=== PATIENT | female | born 1985 | race Two or more races ===

== ENCOUNTER 2024-11-04 15:32 | Outpatient (RCR) | payer MEDICAID, SELFPAY ==
--- NOTE | 2024-11-05 07:03 | CTCFLWUP_ITS ---
Patient: MARK ANTHONY WU : 1985 Page 3 of 5 FOLLOW UP NOTE DATE OF SERVICE: 11/04/2024 NAME: MARK ANTHONY WU ACCOUNT: [id number] : 1985 AGE: 39 INTERVAL HISTORY: Mark Anthony, a 39yo female with painful rib lump since 2019, presented for BRCA1- related cancer risk management. Her history includes bilateral breast cancer status post bilateral mastectomies with unsatisfactory reconstruction. She has not undergone recommended prophylactic oophorectomy despite BRCA1 status. Plan includes urgent referral for bilateral salpingo-oophorectomy, CT scan with contrast of chest/abdomen/pelvis, tumor markers, vitamin D and calcium supplementation, with follow-up in 2 months. Chief Complaint Lump in rib area since 2019 that has been growing and causing pain ONCOLOGY HISTORY:?[facility] Oncology Hx? DIAGNOSIS: ?CloneDiagnosis? Iron deficiency anemia secondary to blood loss (chronic) [ICD10] D50.0; Malignant neoplasm of upper-outer quadrant of right female breast [ICD10] C50.411 DATE OF DIAGNOSIS: 07/31/2008 STAGE/TNM: IA T1b N0 M0 TREATMENT HISTORY: Care?Plan Start?Date Cycle Day Intent Herceptin?6mg/kg;?Perjeta?420mg 07/20/2015 1 Curative?(adjuvant) HISTORY OF PRESENT ILLNESS: History of Present Illness Mark Anthony Wu is a 39-year-old female with a history of bilateral breast cancer, status post bilateral mastectomies, presenting for follow-up regarding BRCA1-related cancer risk management. The patient reports a lump in her rib area that has been present since 2019, which is growing and causing pain. She describes the lump as being located right in here in her rib area. The patient expresses concern about potential cancer growth in this area affecting her diaphragm. Ms. Wu underwent bilateral mastectomies for breast cancer treatment, reporting a positive recovery. She has not yet undergone oophorectomy despite previous recommendations due to her BRCA1 status. The patient mentions that when initially counseled about oophorectomy, she was still in her thirties and the decision was deferred. She has five children, with the youngest being nearly five years old. The patient reports dissatisfaction with her breast reconstruction, stating, I did it, but I don't like the way it was done. This suggests ongoing concerns with body image and potential impact on quality of life following her cancer treatment. Medical History - Bilateral breast cancer, status post bilateral mastectomies - Lump in rib area present since 2019, causing pain - BRCA1 gene mutation carrier - , youngest child is 4 years old Surgical History - Bilateral mastectomies for breast cancer Medications and Supplements - Vitamin D Family History - Friend: Ovarian cancer, had only one child Social History - Children: Has 5 children, youngest is almost 5 years old - Marital/Relationship Status: Has had multiple pregnancies Review of Systems Musculoskeletal: Positive for lump in rib area with associated pain. Endocrine: Positive for hot flashes. Laboratory, Imaging, and Diagnostic Test Results - X-rays and ultrasounds ([id number]): Performed for a lump in the rib area, results not specified OTHER MEDICAL HISTORY/CONDITIONS: FAMILY HISTORY: ?Clone Family Hx? SOCIAL HISTORY: [employer]OR HISTORY: MEDICATIONS: 1. ibuprofen - 800 mg 1 tab As needed?[place]ra Meds? Medications Last Reconciled by Angle Chavez MA on 11/04/2024 ALLERGIES: No Known Drug Allergies REVIEW OF SYSTEMS: A complete 14-point review of systems was performed and is negative except as noted in interval history. PHYSICAL EXAMINATION:?[facility]oneBlock PE? VITAL SIGNS: Temperature?99, B/P?141/95, Oxygen?Saturation?96% Weight?150?lbs PAIN: 0 - No pain ECOG Performance Status: 0 - Asymptomatic and fully active ?[facility]oneBlock PE? GENERAL APPEARANCE: Appears well, in no apparent distress, appropriately interactive. HEENT: Normocephalic, no temporal wasting, normal conjunctiva, no scleral icterus, normal hearing, lips without lesions, neck normal range of motion. CARDIOVASCULAR: Not assessed. PULMONARY: Normal respiratory effort, no respiratory distress or use of accessory muscles, speaking in full sentences, no tachypnea. EXTREMITIES: No pedal edema or cyanosis. SKIN: Normal skin appearance. NEUROLOGIC: Alert and oriented x4. PSHYCHIATRIC: Appropriate affect, mood normal, behavior normal, intact thought and speech. LABORATORY DATA: I have personally reviewed and interpreted each of the patient?s relevant lab tests, abnormal findings are below: Date 10/03/22 ??WHITE?BLOOD?COUNT?(Thou/mm3) 4.1 ??RED?BLOOD?COUNT?(Miln/mm3) 3.99?L ??HEMOGLOBIN?(gm/dl) 10.2?L ??HEMATOCRIT?(%) 32.3?L ??PLATELET?COUNT?(Thou/mm3) 240 ??NEUTROPHILS?%,?AUTO?(%) 62 ??LYMPH?%,?AUTO?(%) 28 ??NEUTROPHILS,?AUTO?(Thou/mm3) 2.5 ??GLUCOSE,RANDOM?(mg/dL) 84 ??BLOOD?UREA?NITROGEN?(mg/dL) 12 ??CREATININE?(mg/dL) 0.60 ??SODIUM?(mmol/L) 141 ??POTASSIUM?(mmol/L) 4.0 ??CHLORIDE?(mmol/L) 106 ??CrCl?(CandG)?(ml/min) 141.16 ??AST/SGOT?(Unit/L) 17 ??ALT/SGPT?(Unit/L) 11 ??ALKALINE?PHOSPHATASE?(Unit/L) 70 ??BILIRUBIN,?TOTAL?(mg/dL) 0.3 ??PROTEIN?TOTAL?(gm/dl) 7.0 ??ALBUMIN,?SERUM?(gm/dl) 4.0 ??GLOBULIN?(gm/dl) 3.0 ??ALBUMIN/GLOBULIN?RATIO 1.3 ??CALCIUM,?SERUM?(mg/dL) 9.4 ??CALCIUM?SERUM?(CORRECTED)?(mg/dL) 9.4 ??CEA?(O*)?(ng/ml) <?0.5 ??CA?125?(O*)?(Unit/mL) 11.0 ASSESSMENT/PLAN:?Manuela Lomax Assessment/Plan? Mark Anthony Wu, a 39-year-old female with a history of bilateral breast cancer and BRCA1 mutation, presents for discussion of prophylactic oophorectomy and evaluation of a painful rib lump present since 2019. BRCA1 mutation with history of bilateral breast cancer Assessment: Patient has a known BRCA1 mutation and history of bilateral breast cancer, status post bilateral mastectomies. She is at high risk for ovarian cancer due to her genetic predisposition. Despite previous recommendations, she has not yet undergone prophylactic oophorectomy. Given her age of 39 and completed childbearing (5 children), immediate prophylactic oophorectomy is strongly indicated to reduce her risk of ovarian cancer, which is described as potentially fatal and difficult to detect early. Plan: - Urgent referral to Dr. Pelaez for prophylactic bilateral salpingo-oophorectomy - Order CT scan with contrast of abdomen and pelvis - Order tumor markers (blood work) - Recommend vitamin D and calcium supplementation post-surgery - Discuss potential use of estrogen cream for vaginal symptoms post-surgery if needed - Follow-up in [address] or sooner if [address] scan completed earlier Painful rib lump Assessment: Patient reports a painful lump in the rib area present since 2019, which has been growing. Previous workup by Dr. Yo included x-rays and ultrasounds, but no biopsy was performed. There is concern about potential malignancy affecting the diaphragm, given the location and persistence of s ymptoms. Plan: - Order CT scan with contrast of chest, abdomen, and pelvis to evaluate rib lump and screen for metastatic disease - Review results of CT scan to determine need for further workup or biopsy Post-bilateral mastectomy status Assessment: Patient underwent bilateral mastectomies for breast cancer treatment. She expresses dissatisfaction with the reconstruction results. Plan: - Discuss potential for revision of breast reconstruction after addressing more urgent health concerns - Consider referral to plastic surgery for evaluation of reconstruction options, including fat grafting, once ovarian cancer risk is addressed ORDERS: Order # Description [id number] + CA 125 + Comprehensive Metabolic Panel - 12 + CBC with Auto Diff [id number] CT Scan + Chest + Abdomen and Pelvis + With W/O Contrast [id number] MD Follow Up 2 Months [id number] RETURN TO CLINIC: 4 weeks BILLING AND COMPLIANCE: I reviewed external records from providers outside my specialty as summarized above. I spent a total of 50 minutes on this patient?s care on the day of their visit excluding time spent related to any billed procedures. This time includes time spent with the patient as well as time spent documenting in the medical record, reviewing patients records and tests, obtaining history, placing orders, communicating with other healthcare professionals, counseling the patient, family or caregiver, and/or care coordination for the diagnoses above. Electronically Signed by: Lukas Lomax MD T: 7:00 AM CC: PCP: Lani Kirkland Referring: Lani Kirkland This document was completed utilizing speech recognition software. Grammatical errors, random word insertions, pronoun errors, and incomplete sentences are an occasional consequence of this system due to software limitations, ambient noise, and hardware issues. Any formal questions or concerns about the content, text or information contained within the body of this dictation should be directly addressed to the provider for clarification.
== END 2024-11-05 23:59 | disposition home or self-care (01) ==
LOC: SCTC 15:32
PROVIDERS: PCP Physician Assistant Medical; Referring Provider Physician Assistant Medical; Visit Provider Internal Medicine Hematology & Oncology
DX: Z08 Encounter for follow-up examination after completed treatment for malignant neoplasm (principal); Z85.3 Personal history of malignant neoplasm of breast; Z90.13 Acquired absence of bilateral breasts and nipples; R07.81 Pleurodynia; M89.8X8 Other specified disorders of bone, other site; Z15.02 Genetic susceptibility to malignant neoplasm of ovary
CPT/HCPCS: 99212; G0463

== ENCOUNTER 2024-12-16 14:30 | Emergency (ER) | payer MEDICAID, SELFPAY ==
[2024-12-16 14:33] VITALS: PULSE 76; RESP 18; O2SAT 98
[2024-12-16 14:45] VITALS: BMI 30.2
[2024-12-16 14:52] VITALS: BP 166/93; PULSE 82; RESP 18; O2SAT 99
[2024-12-16 15:45] VITALS: BP 153/77; PULSE 68; RESP 19; TEMP 36.7; O2SAT 98
[2024-12-16] MEDS: SODIUM CHLORIDE 0.9% 1000 ML 1,000 ML 999 ML IV (15:50)
[2024-12-16] MEDS: MethylPREDNISolone SOD SUCC 62.5 MG/ML 2ML VIAL 125 MG IVP (15:51)
[2024-12-16] MEDS: FAMOTIDINE INJ 10 MG/ML VIAL 2 ML 20 MG IVP (15:51)
--- NOTE | 2024-12-16 17:14 | EDNOTE_ITS ---
ED Allergic Reaction RME/HPI General Chief complaint: Allergic Reaction Stated complaint: MINOR ALLERGIC REACTION Time Seen by Provider: 12/16/24 14:44 Arrival date/time: 12/16/24 14:30 Limitations: no limitations RME / HPI RME / HPI narrative: 39-year-old female brought in by EMS due to allergic reaction during procedure. Was having a steady with IV iodine. Has had it in the past but shortly after started having rash and throat tightening. At this time not short of breath. Was given Benadryl 50 mg IM by EMS en route. Which she thinks has already started to kick in. 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 Often gets itching in the throat. But has never had tongue swelling or lip swelling. Does not have EpiPen at home. No vomiting no diarrhea. Related Data Home Medications ?Medication ?Instructions ?Recorded ?Confirmed tramadol 50 mg tablet (Ultram) 50 mg PO Q4HR PRN PAIN #0 tabs 08/20/14 cyclobenzaprine 10 mg tablet 10 mg PO Q8HR PRN Spasms 07/05/18 hydrocodone 5 mg-acetaminophen 325 1 tab PO Q6H PRN Pa in 07/05/18 mg tablet ([place]) tamoxifen 20 mg tablet 20 mg PO BID 07/05/18 Previous Rx's ?Medication ?Instructions ?Recorded ibuprofen 600 mg tablet 600 mg PO Q6HR PRN PAIN #60 tabs 08/18/15 ibuprofen 600 mg tablet 1 tab PO Q8HR PRN INFLAMMATI ON #30 04/04/17 tabs diphenhydramine HCl 25 mg capsule 50 mg (2 x 25 mg) PO Q6H PRN 12/16/24 (Benadryl) allergy symptoms #10 caps epinephrine 0.3 mg/0.3 mL 0.3 ml subcut .x1 PRN injection, auto-injector hypersensitivity reaction #2 ea famotidine 40 mg tablet (Pepcid) 40 mg PO QDAY #30 tab s 12/16/24 prednisone 20 mg tablet 40 mg PO QDAY 5 days #10 tab s 12/16/24 Allergies Allergy/AdvReac Type Severity Reaction Status Date / Time Iodinated Contrast Media Allergy Difficulty Verified 12/16/24 14:39 Breathing Review of Systems Review of Systems Systems Reviewed: All systems reviewed, normal except as documented Constitutional Constitutional: Denies fever(s) Cardiovascular Cardiovascular: Denies dyspnea Respiratory Respiratory: Denies dyspnea Integumentary/Breasts Skin/Breast: Reports rash ED Exam General Limitations: Present no limitations General appearance: Present alert and in no apparent distress Eye Eye exam: Present normal appearance, PERRL and EOMI ENT ENT exam: Present normal exam, normal oropharynx and mucous membranes moist Neck Neck exam: Present normal inspection, full ROM and trachea midline Chest Chest inspection: Present normal inspection and symmetric chest wall rise Respiratory Respiratory exam: Present normal lung sounds bilaterally Cardiovascular Cardiovascular exam: Present regular rate, normal rhythm and normal heart sounds Abdominal Exam Abdominal exam: Present soft and normal bowel sounds Extremities Exam Extremities exam: Present normal inspection and full ROM Back Exam Back exam: Present normal inspection and full ROM Psychiatric Psychiatric exam: Present normal affect and normal mood Skin Skin exam: Present warm and other (blanching urticarial rash) Course Quality Measures none Orders Category Date Time Status IV [Insert IV] NOW Care 12/16/24 14:51 Completed Famotidine Inj [Pepcid Inj] Med 12/16/24 14:51 Discontinued 20 mg IVP X1 ONE MethylPREDNISolone.* [SoluMEDROL Inj] Med 12/16/24 14:51 Discontinued 125 mg IVP X1 ONE Sodium Chloride 0.9% 1000 ml [Ns] 1,000 ml Med 12/16/24 14:53 Discontinued IV 999 mls/hr Reevaluation(s) Reevaluation #1: 1712 patient eating chips at bedside ready to go home states no longer feels scratchy throat no shortness of breath no difficulty swallowing. Education regarding allergic reactions and sending EpiPen. Vital Signs Vital signs: Vital Signs Pulse Rate 82 12/16/24 14:52 Respiratory Rate 18 12/16/24 14:52 Blood Pressure 166/93 H 12/16/24 14:52 Pulse Oximetry (%) 99 12/16/24 14:52 Oxygen Delivery Method Room Air 12/16/24 14:52 Allergic Reaction MDM Narrative MDM Narrative:: Patient tolerated IV fluids, dexamethasone and Benadryl. Went back to baseline. Education given regarding allergies and the use of Pepcid along with prescription for EpiPen as patient has known allergy to shrimp. Follow-up with PCP return to ER symptoms worsen Patient data External records reviewed:: [facility] previous records Clinical information provided by:: patient and EMS Social determinants that could affect healthcare access:: other (specify) (Sent over from medical facility to the emergency) Patient has the following chronic illnesses:: Known history of allergy to strep How is presenting disease/condition affected by chronic disease/condition?: exacerbated by Evaluation data The following diagnostics were reviewed and interpreted by me:: other (specify) Lab and/or radiology exams considered but not ordered:: Chest x-ray was considered however due to allergic reaction unlikely to change course of treatment today Interpretation Summary: None Medications / Prescriptions Medications or Prescriptions considered but not ordered:: All medications considered were sent Medication administrations:: Medication Administration History Discontinued Medications Famotidine (Famotidine Inj 10 Mg/Ml Vial 2 Ml) 20 mg IVP X1 ONE Stop: 12/16/24 14:52 Last Admin: 12/16/24 15:51 Dose: 20 mg Documented By: LEATHA Sodium Chloride (Ns) 1,000 mls @ 999 mls/hr IV .Q1H1M ONE Stop: 12/16/24 15:53 Last Admin: 12/16/24 15:50 Dose: 999 mls/hr Documented By: LEATHA Methylprednisolone Sodium Succinate (Methylprednisolone Sod Succ 62.5 Mg/Ml 2ml Vial) 125 mg IVP X1 ONE Stop: 12/16/24 14:52 Last Admin: 12/16/24 15:51 Dose: 125 mg Documented By: LEATHA Educated on use of EpiPen and Pepcid along with steroids Consultations Consultation(s) initiated? (list below): No Diagnosis Differential Diagnosis allergic reaction: anaphylaxis, allergic reaction, angioedema, contact dermatitis and adverse reaction to drug Most likely diagnosis given after review of the tests above:: Allergic reaction to iodine Admission Indicated Admission indicated?: not indicated Admission Request Was there a request for admission?: No Disposition Plan Disposition Plan: Discharge Discharge Attestation Discharge Attestation: The patient and all family members were given an opportunity to ask questions and understood the discharge instructions. Discharge instructions specifically effects, indications for sooner follow up or return to the emergency department, and the expected course of current diagnosis. Patient condition: Stable Discharge Plan Plan Patient Disposition: HOME (Self Care) Discharge Disposition comment: Follow-up with PCP in 2 to 3 days Prescriptions/Referrals Prescriptions/Med Rec: New famotidine [Pepcid] 40 mg tablet 40 mg PO QDAY Qty: 30 0RF prednisone 20 mg tablet 40 mg PO QDAY 5 Days Qty: 10 0RF Taper: Prednisone Taper 20 mg DAILY for 2 Days and 0 Hour 10 mg DAILY for 2 Days and 0 Hour 5 mg DAILY for 7 Days and 0 Hour diphenhydramine HCl [Benadryl] 25 mg capsule 50 mg PO Q6H PRN (Reason: allergy symptoms) Qty: 10 0RF epinephrine 0.3 mg/0.3 mL auto-injector 0.3 ml subcut .x1 PRN (Reason: hypersensitivity reaction) Qty: 2 0RF No Action tramadol [Ultram] 50 MG tablet 50 mg PO Q4HR PRN (Reason: PAIN) Qty: 0 Patient Comments: FOR PAIN, NOT TO EXCEED 8 TABS IN 24 HRS ibuprofen 600 MG tablet 600 mg PO Q6HR PRN (Reason: PAIN) Qty: 60 0RF ibuprofen 600 MG tablet 1 tab PO Q8HR PRN (Reason: INFLAMMATION) Qty: 30 0RF cyclobenzaprine 10 mg Tablet 10 mg PO Q8HR PRN (Reason: Spasms) hydrocodone-acetaminophen [[place]] 5-325 mg Tablet 1 tab PO Q6H PRN (Reason: Pain) tamoxifen 20 mg Tablet 20 mg PO BID Referrals: Donavan Escoto MD [Primary Care Provider] - In 1 week Problem List Clinical Impression: Allergic reaction, Allergy to iodine Patient/Caregiver Discharge Instructions Education Materials: ED Medicine Reaction: Allergic Print Language: Chinese Stand Alone Forms: Tori Award Info., Patient Portal Info Letter PA/VACUUM CLEANER ASSEMBLER Supervising Physician PA/VACUUM CLEANER ASSEMBLER Supervising Physician: dr. cox
== END 2024-12-16 17:49 | disposition home or self-care (01) ==
PROVIDERS: Emergency Provider Family Medicine; PCP Family Medicine
DX: L27.0 Generalized skin eruption due to drugs and medicaments taken internally (principal); T50.8X5A Adverse effect of diagnostic agents, initial encounter; Y92.538 Other ambulatory health services establishments as the place of occurrence of the external cause
CPT/HCPCS: 96374; 96375; 99284; J2919; J3490; J7030

== ENCOUNTER → 2024-12-16 | Outpatient (CLI) | payer MEDICAID, SELFPAY ==
[2024-12-16 13:28] LABS: HCG Qualitative,Urine Negative
--- NOTE | 2024-12-16 14:00 | XR_ITS ---
Examination: CT chest with intravenous contrast CT abdomen with intravenous contrast CT pelvis with intravenous contrast 2-D coronal and sagittal reconstructions Time of exam: December 16, 2024 1336 hours Comparison PET/CT scan 03/15/2023, CT chest January 11, 2023, CT abdomen August 18, 2022 INDICATIONS: Diagnosis right breast cancer 2008, right upper abdominal lump noticed beginning 2019 CTDI: vol (mGy) : 16.8 DLP: (mGycm): 670 Technique: Multiple axial images of the chest, abdomen and pelvis with intravenous contrast, 3.0 mm slice thickness. Images obtained post intravenous injection Isovue 370 60 cc. 2-D sagittal and coronal reconstructions. Low dose protocols were performed. One or more of the following dose reduction techniques were used; automated exposure control, adjustment of the mA and/or KV according to patient size, use of iterative reconstruction technique. Findings: Intact right breast implant No thoracic aortic aneurysm dilatation No pulmonary artery filling defects on this non-CTA study No paratracheal tracheobronchial or bronchopulmonary adenopathy 2 mm pulmonary nodule left upper lobe, axial image 119, not seen on the CT chest January 11, 2023 No pneumonia or pulmonary edema No focal liver or splenic lesion No gallstones No pancreatic mass Again noted 33 mm fat-containing right adrenal mass No hydronephrosis No interval abdominal or pelvic lymphadenopathy No bowel obstruction Anteverted uterus with enlarged fundus diffusely and anterior fundal enhancing uterine mass 21 mm Contracted urinary bladder Osseous structures are intact IMPRESSION: Interval 2 mm pulmonary nodule left upper lobe, not seen on this CT chest January 11, 2023 Recommend continued 6 month follow-up CT chest without contrast No interval metastatic disease in the abdomen or pelvis Enhancing 21 mm uterine fundal mass, consider pelvic sonography follow-up
== END | disposition home or self-care (01) ==
LOC: CCTX 12:50
PROVIDERS: PCP Family Medicine; Referring Provider Internal Medicine Hematology & Oncology; Visit Provider Internal Medicine Hematology & Oncology
DX: C50.411 Malignant neoplasm of upper-outer quadrant of right female breast (principal); D50.0 Iron deficiency anemia secondary to blood loss (chronic); R91.1 Solitary pulmonary nodule; N85.8 Other specified noninflammatory disorders of uterus; N85.4 Malposition of uterus
CPT/HCPCS: 71260; 74177; 81025; A4649; Q9967

== ENCOUNTER 2025-02-18 15:14 | Outpatient (RCR) | payer MEDICAID, SELFPAY ==
[2025-02-18 16:02] LABS: Basophils # (Auto) 0.0 Thou/mm3 (0.0-0.2); Basophils % (Auto) 0 % (0-2.5); Eosinophils # (Auto) 0.2 Thou/mm3 (0.0-0.5); Eosinophils % (Auto) 4 % (0-10); Hematocrit 35.0 % (36.0-46.0); Hemoglobin 12.1 g/dL (12.0-16.0); Immature Granulocytes Auto 0.01 Thou/mm3 (0.00-0.00); Lymphocytes # (Auto) 1.3 Thou/mm3 (1.0-4.8); Lymphocytes % (Auto) 26 % (10-50); Mean Corpuscular HGB Conc 34.6 g/dl (31.0-37.0); Mean Corpuscular Hemoglobin 31.3 pg (25.0-35.0); Mean Corpuscular Volume 91 fL (80-100); Monocytes # (Auto) 0.3 Thou/mm3 (0.0-0.8); Monocytes % (Auto) 7 % (0-12); Neutrophils # (Auto) 3.2 Thou/mm3 (1.8-7.7); Neutrophils % (Auto) 63 % (37-80); Nucleated Red Blood Cell # 0.00 Thou/mm3 (0.00-0.00); Nucleated Red Blood Cell % 0 /100 WBC (0); Platelet Count 223 Thou/mm3 (140-440); RDW Standard Deviation 40.0 fL (36.4-46.3); Red Blood Count 3.86 Miln/mm3 (4.00-5.20); White Blood Count 5.1 Thou/mm3 (3.6-11.0)
[2025-02-18 16:03] LABS: IPF Platelet Count 214 Thou/mm3; Immature Platelet Fraction 2.4 % (0.9-11.2)
[2025-02-18 16:39] LABS: Alanine Aminotransferase 10 U/L (10-49); Albumin, Serum 4.2 gm/dL (3.5-5.0); Albumin/Globulin Ratio 1.8 (1.2-2.2); Alkaline Phosphatase 63 U/L (46-116); Anion Gap 6 (7-16); Aspartate Amino Transferase 21 U/L (0-34); BUN/Creatinine Ratio 14 Ratio (12-20); Bilirubin,Total 0.2 mg/dL (0.3-1.2); Blood Urea Nitrogen 13 mg/dL (9-23); Calcium 9.8 mg/dL (8.3-10.6); Calcium (Corrected) 9.8 mg/dL (8.5-10.1); Carbon Dioxide 27.7 mMol/L (20.0-31.0); Chloride 108 mMol/L (98-107); Creatinine (Component) 0.9 mg/dL (0.6-1.3); Globulin 2.3 gm/dL (2.3-3.5); Glucose 90 mg/dL (74-106); Osmolality,Calculated 283 (275-295); Potassium 4.2 mMol/L (3.4-5.1); Sodium 142 mMol/L (136-145); Total Protein 6.5 gm/dL (5.7-8.2); eGFR > 60 See Note
[2025-02-18 16:44] LABS: CA 125 30.0 U/mL (<30.2)
== END 2025-03-08 23:59 | disposition home or self-care (01) ==
LOC: SCTC 15:14
PROVIDERS: PCP Family Medicine; Referring Provider Family Medicine; Visit Provider Internal Medicine Hematology & Oncology
DX: Z85.3 Personal history of malignant neoplasm of breast (principal); Z90.13 Acquired absence of bilateral breasts and nipples; R07.81 Pleurodynia; R22.2 Localized swelling, mass and lump, trunk; Z15.09 Genetic susceptibility to other malignant neoplasm
CPT/HCPCS: 36415; 36591; 80053; 85025; 85055; 86304; A4216; J1642

== ENCOUNTER 2025-03-10 09:42 | Outpatient (CLI) | payer MEDICAID, SELFPAY ==
--- NOTE | 2025-03-10 10:00 | XR_ITS ---
Examination: Port-A-Cath check AP chest single view Fluoroscopy Date and time:: March 10, 2025 1032 hours INDICATIONS: Nonfunctioning Port-A-Cath, no aspiration or effusion of medications this month FINDINGS: The Port-A-Cath line is disconnected from the Port-A-Cath reservoir Fluoroscopy 0.01 minute radiation dose 0.12 milligray 1 spot fluoroscopic chest film The Port-A-Cath tip projects in the right atrium IMPRESSION: The Port-A-Cath line is disconnected from the Port-A-Cath reservoir
[2025-03-10] MEDS: LIDOCAINE OINT 5% 35.44 GM TUBE TOP (11:13)
[2025-03-10] MEDS: HYDROCORTISONE SOD SUCC INJ 100 MG 2 ML VIAL IV (11:13)
[2025-03-10 11:14] VITALS: BP 127/92; PULSE 92; RESP 20; TEMP 37.1; O2SAT 99
[2025-03-10] MEDS: fentaNYL CIT INJ 50 mCg/ML AMP 2ML 25 MCG IVP (11:15)
[2025-03-10 11:19] VITALS: BP 150/103; PULSE 100; RESP 12; O2SAT 99
[2025-03-10 11:21] VITALS: BP 157/87; PULSE 75; RESP 14; O2SAT 99
[2025-03-10 11:30] VITALS: BP 153/92; PULSE 76; RESP 20; O2SAT 98
[2025-03-10 11:45] VITALS: BP 162/90; PULSE 77; RESP 18; O2SAT 99
[2025-03-10 11:55] VITALS: BP 134/91; PULSE 76; RESP 19; O2SAT 96
== END 2025-03-10 12:05 | disposition home or self-care (01) ==
PROVIDERS: PCP Family Medicine; Referring Provider Internal Medicine Hematology & Oncology; Visit Provider Internal Medicine Hematology & Oncology
DX: T85.9XXA Unspecified complication of internal prosthetic device, implant and graft, initial encounter (principal); C50.411 Malignant neoplasm of upper-outer quadrant of right female breast; D50.0 Iron deficiency anemia secondary to blood loss (chronic)
CPT/HCPCS: 36598; J1720; J3010; A9270

== ENCOUNTER 2025-04-07 10:51 | Outpatient (RCR) | payer MEDICAID, SELFPAY ==
[2025-04-07 13:42] LABS: Alanine Aminotransferase 14 U/L (10-49); Albumin, Serum 4.4 gm/dL (3.5-5.0); Albumin/Globulin Ratio 1.9 (1.2-2.2); Alkaline Phosphatase 61 U/L (46-116); Anion Gap 9 (7-16); Aspartate Amino Transferase 17 U/L (0-34); BUN/Creatinine Ratio 13 Ratio (12-20); Bilirubin,Total 0.3 mg/dL (0.3-1.2); Blood Urea Nitrogen 12 mg/dL (9-23); Calcium 10.2 mg/dL (8.3-10.6); Calcium (Corrected) 10.2 mg/dL (8.5-10.1); Carbon Dioxide 28.9 mMol/L (20.0-31.0); Chloride 108 mMol/L (98-107); Creatinine (Component) 0.9 mg/dL (0.6-1.3); Globulin 2.3 gm/dL (2.3-3.5); Glucose 92 mg/dL (74-106); Osmolality,Calculated 290 (275-295); Potassium 3.8 mMol/L (3.4-5.1); Sodium 146 mMol/L (136-145); Total Protein 6.7 gm/dL (5.7-8.2); eGFR > 60 See Note
[2025-04-07 15:08] LABS: Basophils # (Auto) 0.0 Thou/mm3 (0.0-0.2); Basophils % (Auto) 1 % (0-2.5); Eosinophils # (Auto) 0.2 Thou/mm3 (0.0-0.5); Eosinophils % (Auto) 3 % (0-10); Hematocrit 39.1 % (36.0-46.0); Hemoglobin 13.1 g/dL (12.0-16.0); Immature Granulocytes Auto 0.01 Thou/mm3 (0.00-0.00); Lymphocytes # (Auto) 1.3 Thou/mm3 (1.0-4.8); Lymphocytes % (Auto) 26 % (10-50); Mean Corpuscular HGB Conc 33.5 g/dl (31.0-37.0); Mean Corpuscular Hemoglobin 30.0 pg (25.0-35.0); Mean Corpuscular Volume 90 fL (80-100); Monocytes # (Auto) 0.3 Thou/mm3 (0.0-0.8); Monocytes % (Auto) 6 % (0-12); Neutrophils # (Auto) 3.2 Thou/mm3 (1.8-7.7); Neutrophils % (Auto) 64 % (37-80); Nucleated Red Blood Cell # 0.00 Thou/mm3 (0.00-0.00); Nucleated Red Blood Cell % 0 /100 WBC (0); Platelet Count 197 Thou/mm3 (140-440); RDW Standard Deviation 39.4 fL (36.4-46.3); Red Blood Count 4.36 Miln/mm3 (4.00-5.20); White Blood Count 4.9 Thou/mm3 (3.6-11.0)
== END 2025-04-07 23:59 | disposition home or self-care (01) ==
LOC: SCTC 10:51
PROVIDERS: PCP Family Medicine; Referring Provider Family Medicine; Visit Provider Internal Medicine Hematology & Oncology
DX: C50.411 Malignant neoplasm of upper-outer quadrant of right female breast (principal); D50.0 Iron deficiency anemia secondary to blood loss (chronic)
CPT/HCPCS: 36415; 80053; 85025

== ENCOUNTER 2025-04-08 14:20 | Outpatient (RCR) | payer MEDICAID, SELFPAY ==
--- NOTE | 2025-04-13 01:05 | CTCFLWUP_ITS ---
Patient: MARK ANTHONY WU : 1985 Page 2 of 5 FOLLOW UP NOTE DATE OF SERVICE: 04/08/2025 NAME: MARK ANTHONY WU ACCOUNT: [id number] : 1985 AGE: 39 INTERVAL HISTORY: Mark Anthony, a 39-year-old with BRCA1 mutation, presented for follow-up of stage one breast cancer in the left breast diagnosed February 2025. Medical history includes breast cancer surgery in 2014 with bilateral reconstruction. Current findings show ER positive, HER2 2+ biopsy, a 2mm lung nodule, and a non-functioning detached port. The patient takes Vitamin D and calcium. Management includes referrals to surgical oncology, plastic surgery, and gynecology for BRCA-related cancer risk management, with scheduled port removal and pelvic ultrasound for uterine abnormality. ONCOLOGY HISTORY: DIAGNOSIS: Iron deficiency anemia secondary to blood loss (chronic) [ICD10] D50.0; Malignant neoplasm of upper-outer quadrant of right female breast [ICD10] C50.411 DATE OF DIAGNOSIS: 07/31/2008 STAGE/TNM: IA T1b N0 M0 TREATMENT HISTORY: Care?Plan Start?Date Cycle Day Intent HISTORY OF PRESENT ILLNESS: History of Present Illness Mark Anthony Wu is a 39-year-old female with a history of bilateral breast cancer, status post bilateral mastectomies, presenting for follow-up regarding BRCA1-related cancer risk management. The patient reports a lump in her rib area that has been present since 2019, which is growing and causing pain. She describes the lump as being located right in here in her rib area. The patient expresses concern about potential cancer growth in this area affecting her diaphragm. Ms. Wu underwent bilateral mastectomies for breast cancer treatment, reporting a positive recovery. She has not yet undergone oophorectomy despite previous recommendations due to her BRCA1 status. The patient mentions that when initially counseled about oophorectomy, she was still in her thirties and the decision was deferred. She has five children, with the youngest being nearly five years old. The patient reports dissatisfaction with her breast reconstruction, stating, I did it, but I don't like the way it was done. This suggests ongoing concerns with body image and potential impact on quality of life following her cancer treatment. Medical History - Bilateral breast cancer, status post bilateral mastectomies - Lump in rib area present since 2019, causing pain - BRCA1 gene mutation carrier - , youngest child is 4 years old Surgical History - Bilateral mastectomies for breast cancer Medications and Supplements - Vitamin D Family History - Friend: Ovarian cancer, had only one child Social History - Children: Has 5 children, youngest is almost 5 years old - Marital/Relationship Status: Has had multiple pregnancies Review of Systems Musculoskeletal: Positive for lump in rib area with associated pain. Endocrine: Positive for hot flashes. 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 ibuprofen - 800 mg 1 tab As needed Medications Last Reconciled by Angle Mendes MD on 04/08/2025 ALLERGIES: REVIEW OF SYSTEMS: A complete 14-point review of systems was performed and is negative except as noted in interval history. PHYSICAL EXAMINATION: VITAL SIGNS: Temperature?98, B/P?162/115, Oxygen?Saturation?97% Weight?147?lbs (Change?since?04/07/25:?-4?lbs) PAIN: 0 - No pain GENERAL APPEARANCE: Appears well, in no apparent distress, appropriately interactive. HEENT: Normocephalic, no temporal wasting, normal conjunctiva, no scleral icterus, normal hearing, lips without lesions, neck normal range of motion. CARDIOVASCULAR: Not assessed. PULMONARY: Normal respiratory effort, no respiratory distress or use of accessory muscles, speaking in full sentences, no tachypnea. EXTREMITIES: No pedal edema or cyanosis. SKIN: Normal skin appearance. NEUROLOGIC: Alert and oriented x4. PSHYCHIATRIC: Appropriate affect, mood normal, behavior normal, intact thought and speech. LABORATORY DATA: I have personally reviewed and interpreted each of the patient?s relevant lab tests, abnormal findings are below: Date ASSESSMENT/PLAN: Mark Anthony Wu, a 39-year-old female with a history of bilateral breast cancer and BRCA1 mutation, presents for discussion of prophylactic oophorectomy and evaluation of a painful rib lump present since 2019. Mark Anthony is a 39-year-old patient with BRCA1 mutation and a history of breast cancer surgery in 2014 presenting for follow-up of stage one breast cancer in the left breast diagnosed in February 2025. Stage One Breast Cancer (Left Breast) Assessment: Patient was seen on March 03 for stage one breast cancer, likely in the left breast. Biopsy from January showed ER positive, HER2 2+. PET-CT scan was obtained, but the report is missing. Mammogram was ordered under guided biopsy. Patient has a history of breast cancer surgery in 2014 and bilateral reconstruction. A 2mm nodule in the left upper lobe was noted, not seen in 2022. Plan: - Refer to Dr. Clancy for surgical consultation - Refer to plastic surgeon for reconstruction consultation - Obtain and review PET scan report from [place] - Follow up on ultrasound report BRCA1 Mutation Assessment: Patient has confirmed BRCA1 mutation, which increases risk for breast and ovarian cancers. An urgent referral for oophorectomy was made previously, but patient has not yet had the procedure. Patient is 39 years old and requires close monitoring and risk-reducing interventions. Plan: - Refer to bread jockey for BRCA-related cancer risk management - Educate patient on importance of oophorectomy for risk reduction - Inform Dr. Pelaez about BRCA1 mutation status for treatment planning Non-functioning Port Assessment: Patient's port is broken and detached, likely due to a fall on the shoulder over a year ago. X-ray confirmed detachment. The port is non- functioning and approved for removal. Plan: - Refer to Dr. Clancy for port removal - Schedule port removal procedure Uterine Abnormality Assessment: Imaging revealed an unspecified abnormality in the uterus, requiring further evaluation. Plan: - Perform pelvic ultrasound on April 10 - Follow up on ultrasound results Post-bilateral mastectomy status Assessment: Patient underwent bilateral mastectomies for breast cancer treatment. She expresses dissatisfaction with the reconstruction results. Plan: - Discuss potential for revision of breast reconstruction after addressing more urgent health concerns - Consider referral to plastic surgery for evaluation of reconstruction options, including fat grafting, once ovarian cancer risk is addressed ORDERS: Order # Description Ordering Physician Date Condition Diagnosis Account Number Status Statused By (Full Name) Statused By (Initial) Status Date User Defined Data [id number] CT Scan + Chest + With W/O Contrast Lukas Lomax 04/08/2025 ct chest to evaluate for lung nodule (C50.411) Malignant neoplasm of upper-outer quadrant of right female breast, (D50.0) Iron deficiency anemia secondary to blood loss (chronic) ? Approved Lukas Lomax 04/08/2025 ? [id number] Follow Up 3 Months Lukas Lomax 04/08/2025 ? (C50.411) Malignant neoplasm of upper-outer quadrant of right female breast, (D50.0) Iron deficiency anemia secondary to blood loss (chronic) ? Approved Lukas Lomax 04/08/2025 ? [id number] Lukas Lomax 04/08/2025 naterrra for mrd (C50.411) Malignant neoplasm of upper-outer quadrant of right female breast, (D50.0) Iron deficiency anemia secondary to blood loss (chronic) ? Approved Lukas Lomax 04/08/2025 ? RETURN TO CLINIC: I reviewed the diagnosis, prognosis, and recommended treatment/procedure options with the patient (and/or their legal risk control representative), including the potential benefits, risks, side effects and alternative therapies. We also discussed the option of no treatment and the possibility of clinical trial participation, if applicable. All questions were addressed, and they demonstrated understanding. They provided informed consent to proceed with the proposed plan of care. BILLING AND COMPLIANCE: I reviewed external records from providers outside my specialty as summarized above. I spent a total of 50 minutes on this patient?s care on the day of their visit excluding time spent related to any billed procedures. This time includes time spent with the patient as well as time spent documenting in the medical record, reviewing patients records and tests, obtaining history, placing orders, communicating with other healthcare professionals, counseling the patient, family or caregiver, and/or care coordination for the diagnoses above. Electronically Signed by: Lukas Lomax MD T: 1:03 AM CC: PCP: Donavan Escoto Referring: Donavan Escoto This document was completed utilizing speech recognition software. Grammatical errors, random word insertions, pronoun errors, and incomplete sentences are an occasional consequence of this system due to software limitations, ambient noise, and hardware issues. Any formal questions or concerns about the content, text or information contained within the body of this dictation should be directly addressed to the provider for clarification.
== END 2025-05-08 23:59 | disposition home or self-care (01) ==
LOC: SCTC 14:20
PROVIDERS: PCP Family Medicine; Referring Provider Family Medicine; Visit Provider Internal Medicine Hematology & Oncology
DX: C50.411 Malignant neoplasm of upper-outer quadrant of right female breast (principal); Z17.0 Estrogen receptor positive status [ER+]; Z17.31 Human epidermal growth factor receptor 2 positive status; Z15.01 Genetic susceptibility to malignant neoplasm of breast; Z15.02 Genetic susceptibility to malignant neoplasm of ovary; T82.524A Displacement of infusion catheter, initial encounter; Y84.8 Other medical procedures as the cause of abnormal reaction of the patient, or of later complication, without mention of misadventure at the time of the procedure; R93.89 Abnormal findings on diagnostic imaging of other specified body structures; Z90.13 Acquired absence of bilateral breasts and nipples
CPT/HCPCS: 99212; G0463

== ENCOUNTER → 2025-04-10 | Outpatient (CLI) | payer MEDICAID, SELFPAY ==
--- NOTE | 2025-04-10 15:30 | XR_ITS ---
Examination: Pelvic ultrasound, transabdominal, complete Technique: Transabdominal ultrasound of the pelvis performed using grayscale imaging Date and time of exam: April 10, 2025 1510 hours INDICATIONS: CT examination December 16, 2024 21 mm uterine fundal mass FINDINGS: Uterus 10.7 cm uterine body mass 3.6 x 3.5 cm Uterine fundal mass 15 x 13 mm Ovaries obscured by bowel gas Endometrial stripe 0.4 cm IMPRESSION: Uterine areas of probable fibroid degeneration as above Recommend 6 month follow-up transvaginal pelvic sonography
== END | disposition home or self-care (01) ==
PROVIDERS: Referring Provider Internal Medicine Hematology & Oncology; Visit Provider Internal Medicine Hematology & Oncology
DX: N85.9 Noninflammatory disorder of uterus, unspecified (principal); C50.411 Malignant neoplasm of upper-outer quadrant of right female breast
CPT/HCPCS: 76856

== ENCOUNTER 2025-06-09 12:05 | Day surgery (SDC) | payer MEDICAID, SELFPAY ==
[2025-06-08 07:46] VITALS: BMI 27.6
[2025-06-08 08:29] LABS: Basophils # (Auto) 0.0 Thou/mm3 (0.0-0.2); Basophils % (Auto) 1 % (0-2.5); Eosinophils # (Auto) 0.1 Thou/mm3 (0.0-0.5); Eosinophils % (Auto) 4 % (0-10); Hematocrit 38.9 % (36.0-46.0); Hemoglobin 13.0 g/dL (12.0-16.0); Immature Granulocytes Auto 0.01 Thou/mm3 (0.00-0.00); Lymphocytes # (Auto) 1.0 Thou/mm3 (1.0-4.8); Lymphocytes % (Auto) 28 % (10-50); Mean Corpuscular HGB Conc 33.4 g/dl (31.0-37.0); Mean Corpuscular Hemoglobin 29.7 pg (25.0-35.0); Mean Corpuscular Volume 89 fL (80-100); Monocytes # (Auto) 0.3 Thou/mm3 (0.0-0.8); Monocytes % (Auto) 8 % (0-12); Neutrophils # (Auto) 2.2 Thou/mm3 (1.8-7.7); Neutrophils % (Auto) 60 % (37-80); Nucleated Red Blood Cell # 0.00 Thou/mm3 (0.00-0.00); Nucleated Red Blood Cell % 0 /100 WBC (0); Platelet Count 199 Thou/mm3 (140-440); RDW Standard Deviation 40.1 fL (36.4-46.3); Red Blood Count 4.38 Miln/mm3 (4.00-5.20); White Blood Count 3.7 Thou/mm3 (3.6-11.0)
[2025-06-08 08:37] LABS: INR 0.9 (0.9-1.3); Partial Thromboplastin Time 23.8 Seconds (22.0-36.0); Prothrombin Time 10.1 Seconds (9.0-12.2)
[2025-06-08 08:39] LABS: Alanine Aminotransferase 15 U/L (10-49); Albumin, Serum 4.8 gm/dL (3.5-5.0); Albumin/Globulin Ratio 1.9 (1.2-2.2); Alkaline Phosphatase 65 U/L (46-116); Anion Gap 7 (7-16); Aspartate Amino Transferase 21 U/L (0-34); BUN/Creatinine Ratio 19 Ratio (12-20); Bilirubin,Total 0.4 mg/dL (0.3-1.2); Blood Urea Nitrogen 15 mg/dL (9-23); Calcium 9.7 mg/dL (8.3-10.6); Calcium (Corrected) 9.7 mg/dL (8.5-10.1); Carbon Dioxide 30.4 mMol/L (20.0-31.0); Chloride 109 mMol/L (98-107); Creatinine (Component) 0.8 mg/dL (0.6-1.3); Estimated Creatinine Clearance 79.9 mL/min (>60); Globulin 2.5 gm/dL (2.3-3.5); Glucose 100 mg/dL (74-106); Osmolality,Calculated 291 (275-295); Potassium 4.0 mMol/L (3.4-5.1); Sodium 146 mMol/L (136-145); Total Protein 7.3 gm/dL (5.7-8.2); eGFR > 60 See Note
[2025-06-08 08:45] LABS: HCG,Qualitative Serum Negative
--- NOTE | 2025-06-08 14:36 | SUR.PREOP ---
Pt notified to come in tomorrow at 1200.
[2025-06-09] VITALS (9 sets, daily range): BP systolic 115–163; BP diastolic 67–85; PULSE 81–108; RESP 14–20; TEMP 36.2–36.8; O2SAT 96–100; BMI 27.4
--- NOTE | 2025-06-09 14:04 | XR_ITS ---
EXAMINATION: AP chest single view TECHNIQUE: AP portable supine chest single view Date and time: June 09, 2025, 1413 hours, comparison January 22, 2017 INDICATIONS: Port-A-Cath removal. FINDINGS: A portion of the Port-A-Cath line, projects superior vena cava and right atrium No pneumothorax The Port-A-Cath reservoir is not clearly identified IMPRESSION: Remnant Port-A-Cath line as above
--- NOTE | 2025-06-09 14:40 | SUR.PHASEI ---
1440 patient arrived to recovery resting comfortably in [facility], on oxygen 4L via nasal cannula, LMA discontinued upon arrival, breathing unlabored, vital signs stable, denies pain, dressing intact to right upper chest; sutures, adaptic, gauze, medipore tape, no bleeding noted, report received from Dr. Benavides and Arnaud SANCHES
--- NOTE | 2025-06-09 14:47 | PD.SUROPNT ---
Date of Procedure 06/09/25 Pre Op Diagnosis Malfunctioning Port-A-Cath with separation of the catheter from the port Post Op Diagnosis Same Procedure Removal of the port without removal of the catheter Findings Patient is found to have large port that was placed through right subclavian vein many years ago. Patient was found to have disconnection of the catheter from the main port in March of this year by the radiology. Patient wanted to get the port removed because it was painful. I explained to her that the catheter and the vein could not be removed and I can only remove the port and she was agreeable. Procedure Description Or the patient was brought to the operating room LMA anesthesia was given. Then the right side of the neck was washed with ChloraPrep solution and draped in a sterile manner. The Port-A-Cath was located in the anterior portion of the right chest wall above her right breast. I made incision over the previous surgical scar and dissected out subcutaneous tissue. The port was very well encapsulated which I incised. I removed the port by cutting the sutures that was holding port to the underlying muscle. The catheter was broken about 5 cm from the main port. The distal portion cannot be felt palpated at all. I did then exploration in the tunnel where the catheter was but could not reach it for pulling it out. It is probably embedded deeply in the vein and may not be possible to remove it. However I removed the port and irrigated the wound with saline solution and closed the subcutaneous tissue with 3-0 chromic skin was closed with 5-0 nylon stitches and a dressing was applied with Adaptic and 4 x 4 gauze. Patient tolerated the procedure and left operating room in stable condition Anesthesia other (General LMA) Pathology / specimen Other (The port removed with a small portion of the catheter attached to it) IVF Infused 300 Estimated Blood Loss 20 Condition Stable Disposition PACU Surgeon Jose Juan Torres MD Surgical Staff Operation Date: 06/09/25 14:15 Case Staff Anesthesiologist: Remigio Benavides
--- NOTE | 2025-06-09 16:17 | SUR.PHASEII ---
1617 Patient meets discharge criteria from recovery, awake and alert, breathing unlabored, vital signs stable, denies pain, dressing intact; no bleeding noted, patient assisted with dressing into her clothing by her boyfriend, drinking cranberry juice; denies nausea, discharge instructions given to patient and patients boyfriend, boyfriend signed discharge instructions. Patient given all her belongings prior to discharge, transported via wheelchair and left in a private vehicle.
== END 2025-06-09 16:17 | disposition home or self-care (01) ==
PROVIDERS: Anesthesiology; PCP Family Medicine; Referring Provider Surgery; Visit Provider Surgery
PROC: (CPT 36590; principal; 2025-06-09 14:00)
DX: T82.514A Breakdown (mechanical) of infusion catheter, initial encounter (principal); Y84.8 Other medical procedures as the cause of abnormal reaction of the patient, or of later complication, without mention of misadventure at the time of the procedure
CPT/HCPCS: 36590; 36415; 71045; 80053; 84703; 85025; 85610; 85730; A4217; A4649; J1885; J2250; J2704; J3010

== ENCOUNTER → 2025-06-11 | Outpatient (CLI) | payer MEDICAID, SELFPAY ==
--- NOTE | 2025-06-11 13:30 | XR_ITS ---
Examination: CT chest, without intravenous contrast. Sagittal and coronal 2-D reconstructions. Exam date and time: June 11, 2025, 1420 hours, comparison CT chest December 16, 2024 INDICATIONS: Diagnosis malignant neoplasm of upper-outer quadrant of right female breast, 2 mm pulmonary nodule left upper lobe on CT chest December 16, 2024 CTDI:vol (mGy) 11.1 DLP: (mGycm) 379 Technique: Multiple 3.0 mm axial sections of the chest to been obtained. Bone and lung density settings are obtained. Sagittal and coronal 2-D reconstructions have been obtained. Low dose protocols were performed. One or more of the following dose reduction techniques were used; automated exposure control, adjustment of the mA and/or KV according to patient size, use of iterative reconstruction technique. Findings: Intact right breast implant No breast chest wall masses No axillary lymphadenopathy Thoracic aorta is not enlarged Pulmonary artery segments unremarkable No paratracheal tracheobronchial or bronchopulmonary adenopathy Stable 2 mm pulmonary nodule left upper lobe No new pulmonary nodules No pneumonia or pulmonary edema No visualized liver or splenic lesion No gallstones No pancreatic mass Fat-containing 33 mm right adrenal mass stable compared with December 16, 2024 No gallstones No visualized liver or splenic lesion Moderate osteopenia IMPRESSION: No interval mediastinal lymphadenopathy Stable 2 mm pulmonary nodule left upper lobe, no new pulmonary nodules
[2025-06-11 13:59] LABS: HCG Qualitative,Urine Negative
== END | disposition home or self-care (01) ==
PROVIDERS: PCP Family Medicine; Referring Provider Internal Medicine Hematology & Oncology; Visit Provider Internal Medicine Hematology & Oncology
DX: R91.1 Solitary pulmonary nodule (principal); C50.411 Malignant neoplasm of upper-outer quadrant of right female breast; Z32.00 Encounter for pregnancy test, result unknown
CPT/HCPCS: 71250; 81025